=== PATIENT | female | born 1980 | race Caucasian/White ===

== ENCOUNTER 2022-05-14 03:21 | Inpatient (IN) | payer MEDICAID ==
[2022-05-14] VITALS (7 sets, daily range): BP systolic 82–143; BP diastolic 52–103
[~2022-05-14] VITALS: Ht 162.6 cm; Wt 79.4 kg
--- NOTE | 2022-05-14 03:34 | NUR ---
PT TAKEN TO BED 6
--- NOTE | 2022-05-14 03:40 | NUR ---
42 Y/O F briught in by caity presents with an OD of 100-200 Wellbutrin tablets x6 beers, x1 shot of tequila while at a family alliance party at home. pt stated she was triggered because her oldest daughter brought over her babys father new girlfriend. pt stated she has a history of depression and suicide attempts. pt stated she does not want to live. pt is A&Ox3, skin intact. pt stated she feels nauseated but denies any vd. pmh-depression allergies-unobtainable
--- NOTE | 2022-05-14 03:53 | NUR ---
Dr. Blanchard examining patient.
[2022-05-14 04:07] LABS: BASOPHILS # (AUTO) 0.1 K/uL (0.00-0.22); BASOPHILS % (AUTO) 1.5 % (0.0-2.0); EOSINOPHILS # (AUTO) 0.2 K/uL (0-0.4); EOSINOPHILS % (AUTO) 1.8 % (0.0-4.0); HEMATOCRIT 41.6 % (36-48); LYMPHOCYTES # (AUTO) 3.7 K/uL (2.5-16.5); LYMPHOCYTES % (AUTO) 39.7 % (20.5-51.1); MEAN CORPUSCULAR HEMOGLOBIN 29 pg (27-31); MEAN CORPUSCULAR HGB CONC 34 g/dL (33-37); MEAN CORPUSCULAR VOLUME 87.3 fL (80-94); MONOCYTES # (AUTO) 0.5 K/uL (0.8-1.0); MONOCYTES % (AUTO) 5.5 % (1.7-9.3); NEUTROPHILS # (AUTO) 4.8 K/uL (1.8-7.7); NEUTROPHILS % (AUTO) 51.5 % (42.2-75.2); PLATELET COUNT (AUTO) 339 K/uL (140-450); RED BLOOD CELL COUNT(AUTO) 4.77 MIL/uL (4.20-5.40); RED CELL DISTRIBUTION WIDTH 13.8 % (11.6-13.7); WHITE BLOOD COUNT (AUTO) 9.3 K/uL (4.8-10.8)
--- NOTE | 2022-05-14 04:10 | NUR ---
BELONGINGS LIST DONE.
[2022-05-14 04:23] LABS: ALBUMIN 4.6 g/dL (3.4-5.0); ANION GAP 16.4 (8-16); ASPARTATE AMINOTRANSFERASE 17 U/L (15-37); CHLORIDE 109 mmol/L (98-107); CREATININE 1.1 mg/dL (0.6-1.3); GFR ARICAN-AMERICAN 70 mL/min (>90); GLUCOSE 76 mg/dL (74-106); POTASSIUM 3.4 mmol/L (3.5-5.1); SODIUM SERUM 146 mmol/L (136-145); TOTAL BILIRUBIN 0.5 mg/dL (0.0-1.0); UREA NITROGEN, BLOOD 7 mg/dL (7-18)
[2022-05-14 04:26] LABS: SALICYLATE < 2.8 mg/dL (2.8-20.0)
[2022-05-14 04:27] LABS: ACETAMINOPHEN < 0.5 ug/ml (10-30)
--- NOTE | 2022-05-14 04:34 | NUR ---
poision control contacted [phone] spoke with Rafiq. Rafiq gave instructions to start with charcoal as a medication and if needed perform a bowel irrigation with 1 Liter golytely Qhr via NG tube. 24hr watch if needed begin with aggressive benzos and intubate. ekg q2hrs, and look out for possible seizures and tachy.
--- NOTE | 2022-05-14 04:58 | NUR ---
PT PLACED ON A 5150 HOLD BY PRASANTH SILVERIO
[2022-05-14] MEDS ORDERED: LORazepam 2 MG/ML VIAL ONE ×2 (05:25→07:16)
--- NOTE | 2022-05-14 05:25 | NUR ---
DR. SILVERIO AT BEDSIDE
--- NOTE | 2022-05-14 05:26 | NUR ---
Respiratory Therapist at bedside for respiratory intervention.
[2022-05-14] MEDS ORDERED: PROPOFOL 1000 MG/100 ML PREMIX 100 ML IV ONE ×2 (05:30→23:28)
[2022-05-14] MEDS ORDERED: BOWEL EVACUANT DRINK 4,000 ML PDS NG ONE (05:30)
[2022-05-14] MEDS ORDERED: LORazepam 2 MG/ML VIAL IVP ONE ×2 (05:30)
[2022-05-14] MEDS ORDERED: ACTIVATED CHARCOAL W/SORBITOL 50 GM/240 ML TUBE ONE (05:31)
[2022-05-14] MEDS ORDERED: INTUBATION KIT MC ONE (05:32)
--- NOTE | 2022-05-14 05:37 | NUR ---
DR. SILVERIO STARTING PROCEDURE AT BEDSIDE
--- NOTE | 2022-05-14 05:37 | NUR ---
0537- 20MG OF ETOMIDATE GIVEN 0538- 100MG SUCC GIVEN 0539- 23 AT THE MOUTH, +COLOR CHANGE
--- NOTE | 2022-05-14 05:46 | NUR ---
X-Ray at bedside.
[2022-05-14] MEDS ORDERED: NACL 0.9% 1,000 ML IV ONE (06:00)
--- NOTE | 2022-05-14 06:35 | NUR ---
X-Ray at bedside.
--- NOTE | 2022-05-14 06:59 | NUR ---
DR. SILVERIO AT BEDSIDE
[2022-05-14] MEDS ORDERED: NOREPINEPHRINE 4 MG/4 ML VIAL IV ONE ×2 (07:04→14:57)
[2022-05-14] MEDS: NOREPINEPHRINE 4 MG in DEXTROSE 5% 250 ML IV PRN (07:12)
--- NOTE | 2022-05-14 07:16 | NUR ---
PT HAD A SEIZURE. ERMD MADE AWARE
--- NOTE | 2022-05-14 07:28 | NUR ---
RECIEVED REPORT FROM KATHY JENSEN FOR TRANSFER OF CARE.
--- NOTE | 2022-05-14 07:38 | NUR ---
RECEIVED ON A KnewtonSCAPE R860 VENTILATOR PLUGGED INTO RE OUTLET TOLERATING WELL WITHOUT ADVERSE REACTIONS NOTED TO AN ENDOTRACHEAL TUBE #7.5 SECURED AT 24cl TEETH/GUM LINE WITH AN ANCHOR FAST CUFF PRESSURE CHECKED NOTED AMBU BAG AT BEDSIDE SEDATED PROPOFOL 5mcg EPI 8mcg EQUAL CHEST RISE GOOD AERATION THROUGHOUT BILATERAL LUNG RODGERS AIRWAY PATENT
--- NOTE | 2022-05-14 09:12 | NUR ---
TRANSFERRED PATIENT TO RADIOLOGY FOR CT SCAN OF HEAD; REMOVED FROM VENTILATOR PLACED ON SUPPLEMENTAL OXYGEN AT 15 LPM VIA E-TANK TO HME/INLINE SUCTION CATHETER/ENDOTRACHEAL TUBE BAG DEPRESSION EVERY 5-6 SECONDS WHILE MAINTAINING A RATE OF 20 BPM TOLERATED PROCEDURE AND TRANSFERS WELL WITHOUT ADVERSE REACTIONS NOTED SATURATION 99% HR MID 90'S
--- NOTE | 2022-05-14 09:13 | NUR ---
PT TAKEN TO CT WITH COMPUTER NETWORKING INSTRUCTOR ADJUNCT, RT, AND EMT
[2022-05-14] MEDS ORDERED: PIPERACILLIN/TAZOBACTAM 3.375 GM VIAL IV ONE (09:24)
--- NOTE | 2022-05-14 09:25 | NUR ---
Returned from CT.
--- NOTE | 2022-05-14 09:35 | NUR ---
Dr. Bundy, mine inspector federal, evaluating patient at bedside. Recieved new orders for Propofol to 20, Golytely 1liter/hour x 4 then to call Poison Control to verify recommendation and 1gm Dilantin IV once. Addendum: 05/14/22 at [address] Guevara, mine inspector federal savannah Nichole.
--- NOTE | 2022-05-14 09:49 | NUR ---
Paged Dr. Dobson, awaiting call back for clarification of orders.
--- NOTE | 2022-05-14 10:03 | NUR ---
Unable to assess Suicide Severity Risk, patient is sedated.
[2022-05-14] MEDS ORDERED: PHENYTOIN 1,000 MG in NACL 0.9% 100 ML IV SCH (11:00)
--- NOTE | 2022-05-14 11:24 | NUR ---
SEDATED PROPOFOL 10mcg EPI 10mcg STABLE GOOD CHEST RISE AIRWAY PATENT
--- NOTE | 2022-05-14 11:51 | NUR ---
CALLED DR. KAYLEE COTTRELL AT [facility] TO REVIEW ABG RESULTS MODE/EXCHANGE TO PAGE FOREAJAYIONED PATIENT ONFORMATION AND CALL BACK NUMBER GIVEN Addendum: 05/14/22 at 1157 by Hugh Higgins RT ONFORMATION=INFORMATION
[2022-05-14] MEDS ORDERED: SODIUM BICARBONATE 650 MG TAB ONE (12:03)
[2022-05-14] MEDS ORDERED: SODIUM BICARBONATE 8.4% PFS 50 MEQ/50 ML SYR IVP ONE ×4 (12:03→12:20)
[2022-05-14] MEDS ORDERED: SODIUM BICARBONATE 8.4% 50 MEQ in DEXTROSE 5% 1,000 ML IV SCH (12:05)
--- NOTE | 2022-05-14 12:08 | NUR ---
Patient is noted to be in V-Fib intermittently, Dr. Yao made aware.
--- NOTE | 2022-05-14 12:13 | NUR ---
Orders recieved for Sodium Bicarb 150 mEq IV Push from Dr[address] Yao. RN administered medication.
--- NOTE | 2022-05-14 12:14 | NUR ---
CALL BACK FROM DR. KAYLEE HONEYCUTT: VENTILATOR CHANGES INCREASED RATE TO 24 BPM; VT 500ml; FIO2 TO 60%; INFUSE 2 AMPS BICARBONATE; ABG 05/15/22 AT 8AM
--- NOTE | 2022-05-14 12:16 | NUR ---
PER YINKA COTTRELL AT 1214 "1 AMP BICRABONATE"; PER NIRAV/RIBBON WEAVER 2 AMPS BICARBONATE GIVEN AT 1213
--- NOTE | 2022-05-14 12:17 | NUR ---
VENTILATOR CHANGES PER YINKA COTTRELL AT 1214; SEDATED EQUAL CHEST RISE NO DISTRESS NOTED AIRWAY PATENT
--- NOTE | 2022-05-14 12:25 | NUR ---
SPOKE WITH POISON CONTROL, UPDATE GIVEN AT THIS TIME
[2022-05-14] MEDS: PIPERACILLIN/TAZOBACTAM 3.375 GM in DEXTROSE 5% 50 ML IV SCH ×2 (13:00→13:29)
[2022-05-14 13:35] LABS: BARBITURATE, URINE NEGATIVE ng/ml (NEG <=200); BENZODIAZEPINE, URINE NEGATIVE ng/mL (NEG <=200)
[2022-05-14 13:36] LABS: CANNABINOID, URINE NEGATIVE ng/mL (NEG <=50); COCAINE, URINE NEGATIVE ng/mL (NEG <=300); OPIATE, URINE NEGATIVE ng/mL (NEG <=2000); PHENCYCLIDINE SCREEN,URINE NEGATIVE ng/mL (NEG <=25)
--- NOTE | 2022-05-14 14:19 | NUR ---
Used prepress operator Neela #:[phone] to update mom on patients condition.
--- NOTE | 2022-05-14 15:50 | NUR ---
Patient was turned and repositioned, no bowel movement noted.
--- NOTE | 2022-05-14 16:28 | NUR ---
SPOKE WITH POISON CONTROL, UPDATE GIVEN AT THIS TIME. PT OUTSIDE OF WINDOW FOR GLYCOL TX DIRECT LINE:
--- NOTE | 2022-05-14 17:34 | NUR ---
Updated mom, responsible green party, on patients condition. Ritika #: [id number]
--- NOTE | 2022-05-14 18:35 | NUR ---
Patient was turned and repositioned.
--- NOTE | 2022-05-14 20:56 | NUR ---
Gayle LOWERED FIO2 TO 40%
--- NOTE | 2022-05-14 22:20 | NUR ---
ADMITTED PATIENT FROM ER WITH A DIAGNOSIS OF WELBUTRIN OVERDOE ON A GURNEY.SHE WAS ON RESTRAINTS TO PREVENT FROM PULLING OUT VITAL LINES.ON PROPOFOL AT 25MCG AND LEVOPHED AT 5MCG.ON VENT SETTINGS ACVC 24TV 500 FIO2 40% PEEP 5 WITH O2 SAT AT 94% LUNG SOUNDS WITH RHONCHI THROUHOUT.ABDOMEN BENIGN,OBESE WITH + BS X4 QUADS.ALL PULSES PRESENT AND PALPABLE.NO EDEMA NOTED ON ALL EXTREMITIES.RIGHT IJ BENIGN WITH DRESSING IN PLACE ,WILL CONTINUE TO PROCEED WITH CARE.
--- NOTE | 2022-05-14 22:23 | NUR ---
221 transfered pt to icu bed 6. pt on same settings
[2022-05-15] VITALS (21 sets, daily range): BP systolic 108–143; BP diastolic 34–90
[2022-05-15] MEDS ORDERED: PROPOFOL 200 MG/20 ML VIAL IV SCH (02:35)
[2022-05-15] MEDS ORDERED: NOREPINEPHRINE 4 MG/4 ML VIAL IV ONE ×2 (04:05→21:04)
--- NOTE | 2022-05-15 05:18 | NUR ---
0520 LOWERED FIO2 TO 35% ON VENT. SATS 97%
[2022-05-15] MEDS: NOREPINEPHRINE 4 MG in DEXTROSE 5% 250 ML IV PRN (05:22)
--- NOTE | 2022-05-15 07:00 | NUR ---
ENDORSED TO NOVAL DAY SHIFT RN FOR CONTINUITY OF CARE.
[2022-05-15] MEDS: PROPOFOL 1000 MG/100 ML PREMIX 100 ML IV PRN ×3 (10:00→21:22)
--- NOTE | 2022-05-15 10:02 | NUR ---
PATIENT HAS BEEN SCREENED AND CATEGORIZED MODERATE NUTRITION RISK. PATIENT WILL BE SEEN WITHIN 3-5 DAYS OF ADMISSION. REVIEWED BY CHRISTEL TUTTLE RD
[2022-05-15] MEDS ORDERED: fentaNYL citrate 1 MG in NACL 0.9% 80 ML IV PRN (10:05)
--- NOTE | 2022-05-15 10:45 | NUR ---
PT. WITH LOW JEFFERY SCALE AT MODERATE TO HIGH RISK, CONTINUE TO FOLLOW PRESSURE INJURY PREVENTION INTERVENTIONS. -POSITIONING: TURN AND REPOSITION PATIENT Q 2H OR SOONER USE PILLOWS TO KEEP BONY PROMINENCES FROM DIRECT CONTACT WITH SURFACES USE REPOSITIONING WEDGES TO PROVIDE 30-DEGREE ANGLE FOR SIDE LYING POSITIONS OFFLOADING OR FOAM DRESSING TO ALL TUBING TO PREVENT MEDICAL DEVICES RELATED PRESSURE INJURY -RE-EVALUATING AND MANAGING INCONTINENCE MONITOR SKIN CONDITION DURING POSITION CHANGE DO NOT MASSAGE REDNESS, BONY PROMINENCES FREQUENT MAC-CARE AND PROVIDE BARRIER CREAMS PRN IF SOILING MOISTURE CONTROL BY OFFER BED HERNANDEZ/URINAL /ABSORBENT PAD TO WICK AND HOLD MOISTURE KEEP SKIN DRY AND PROTECT FROM FRICTION -MANAGE FRICTION/SHEAR/MOBILITY KEEP HOB AT THE LOWEST LEVEL OF ELEVATION NO MORE THAN 30 DEGREE UNLESS OTHERWISE CONTRAINDICATED USE LIFT SHEET OR TRANSFER DEVICE TO MOVE PATIENT AND PREVENT LATERAL SHEER. PROTECT HEELS, ELBOWS BONY PROMINENCES WITH SKIN BERRIES OR FOAM DRESSING IF EXPOSED TO FRICTION OFFLOAD BILATERAL HEELS BY PLACING PILLOWS UNDER CALVES AT ALL TIMES, UNLESS OTHERWISE CONTRAINDICATED -PRESSURE REDISTRIBUTION SURFACE THERAPY MALDONADO ISOFLEX MATTRESS -NUTRITION: PLEASE FOLLOW RD RECOMMENDATIONS AND OFFER NUTRITION SUPPLEMENTS IF ORDERED. PLEASE CONTACT WOUND CARE NURSE FOR ANY QUESTION AND CHANGE OF WOUND CONDITION.
[2022-05-15 11:38] LABS: BASOPHILS % (AUTO) 0.2 % (0.0-2.0); EOSINOPHILS % (AUTO) 0.2 % (0.0-4.0); HEMOGLOBIN 11.2 g/dL (12.0-16.0); LYMPHOCYTES # (AUTO) 1.7 K/uL (2.5-16.5); LYMPHOCYTES % (AUTO) 9.7 % (20.5-51.1); MEAN CORPUSCULAR HEMOGLOBIN 29 pg (27-31); MEAN CORPUSCULAR HGB CONC 33 g/dL (33-37); MEAN CORPUSCULAR VOLUME 88.8 fL (80-94); MONOCYTES # (AUTO) 1.3 K/uL (0.8-1.0); MONOCYTES % (AUTO) 7.4 % (1.7-9.3); NEUTROPHILS # (AUTO) 14.9 K/uL (1.8-7.7); NEUTROPHILS % (AUTO) 82.5 % (42.2-75.2); PLATELET COUNT (AUTO) 290 K/uL (140-450); RED BLOOD CELL COUNT(AUTO) 3.83 MIL/uL (4.20-5.40); RED CELL DISTRIBUTION WIDTH 14.3 % (11.6-13.7); WHITE BLOOD COUNT (AUTO) 18.1 K/uL (4.8-10.8)
[2022-05-15 12:13] LABS: ALBUMIN 3.6 g/dL (3.4-5.0); ANION GAP 15.5 (8-16); CARBON DIOXIDE 23.6 mmol/L (21-32); CREATININE 0.9 mg/dL (0.6-1.3); POTASSIUM 3.1 mmol/L (3.5-5.1); TOTAL BILIRUBIN 1.4 mg/dL (0.0-1.0)
[2022-05-15] MEDS: PIPERACILLIN/TAZOBACTAM 3.375 GM in DEXTROSE 5% 50 ML IV SCH ×2 (13:00→20:45)
--- NOTE | 2022-05-15 13:26 | NUR ---
[place] VIR[facility]NA SW ATTEMPTED TO OUTREACH TO PTS EMERGENCY CONTACT IMAN ARMSTRONG, PT'S MOTHER, HOWEVER, NO ANSWER. PHONE CONTINUED TO RING, UNABLE TO LEAVE MESSAGE. Addendum: 05/16/22 at 1341 by Jer Payne SS SECOND ATTEMPT: OUTREACHED TO PTS EMERGENCY CONTACT IMAN ARMSTRONG, , HOWEVER NO ANSWER. UNABLE TO LEAVE MESSAGE PHONE CONTINUES TO RING.
[2022-05-15] MEDS ORDERED: THIAMINE 200 MG/2 ML VIAL IM ONE (14:10)
[2022-05-15] MEDS ORDERED: MAG SULF 2000 MG/WATER PREMIX 50 ML IV SCH (14:18)
[2022-05-15] MEDS: FOLIC ACID IV SCH (15:00)
[2022-05-15] MEDS: MULTIVITAMIN IV SCH (15:00)
[2022-05-15] MEDS: THIAMINE IV SCH (15:00)
[2022-05-15] MEDS: DEXTROSE 5% IV SCH (15:00)
[2022-05-15] MEDS ORDERED: fentaNYL citrate - 50mL vial 2.5 MG in NACL 0.9% 200 ML IV PRN (15:15)
[2022-05-15] MEDS: LORazepam 2 MG/ML VIAL IVP PRN (18:53)
--- NOTE | 2022-05-15 20:00 | NUR ---
RECEIVE PATIENT SEDATED ON PROFOFOL 30 MCG AND FENTANYL 2 MCG.OPEN EYES AND ABLE TO MOVE EXTREMITIES.AFEBRILE.ASYMPTOMATIC OF ANY PAIN AND DISCOMFORT.SR ON THE MONITOR WITH HR 88.ON VENT SETTINGS ACVC 24TV 500 FIO2 35% PEEP 5 WITH O2 SAT AT 96% LUNG SOUNDS WITH RHONCHI THROUGHOUT.ABDOMEN OBESE WITH + BS X4 QUADS.ALL PULSES PRESENT AND PALPABLE NO EDEMA NOTED ON ALL EXTREMITIES.ALL PERIPHERAL IV AND AND RIGHT INTERNAL JUGULAR STILL PATENT AND INTACT AND BENIGN.FOLET IN PLACE DRAINING ADEQUATE AMOUNT OF URINE.WILL CONTINUE TO FOLLOW CARE PLAN.
[2022-05-15] MEDS ORDERED: NOREPINEPHRINE 8 MG in DEXTROSE 5% 250 ML IV PRN (21:50)
[2022-05-16] VITALS (19 sets, daily range): BP systolic 103–187; BP diastolic 45–116
[2022-05-16] MEDS: PROPOFOL 1000 MG/100 ML PREMIX 100 ML IV PRN ×2 (02:33→08:42)
[2022-05-16] MEDS: PIPERACILLIN/TAZOBACTAM 3.375 GM in DEXTROSE 5% 50 ML IV SCH ×3 (04:50→21:29)
[2022-05-16 06:37] LABS: ANION GAP 10.1 (8-16); CARBON DIOXIDE 25.7 mmol/L (21-32); CREATININE 0.8 mg/dL (0.6-1.3)
[2022-05-16 07:40] LABS: POTASSIUM 2.8 mmol/L (3.5-5.1)
[2022-05-16] MEDS: LORazepam 2 MG/ML VIAL IVP PRN ×3 (08:40→14:16)
[2022-05-16] MEDS ORDERED: KCL 20 MEQ IN 100 mL PREMIX 200 ML IV SCH ×2 (09:00→16:00)
--- NOTE | 2022-05-16 09:15 | NUR ---
TV LOWERED FROM 500 TO 450 AND RR LOWERED FROM [address] ROSE.
[2022-05-16 09:18] LABS: BASOPHILS # (AUTO) 0.1 K/uL (0.00-0.22); BASOPHILS % (AUTO) 0.6 % (0.0-2.0); EOSINOPHILS # (AUTO) 0.2 K/uL (0-0.4); HEMATOCRIT 30.6 % (36-48); LYMPHOCYTES # (AUTO) 2.3 K/uL (2.5-16.5); LYMPHOCYTES % (AUTO) 20.5 % (20.5-51.1); MEAN CORPUSCULAR HEMOGLOBIN 29 pg (27-31); MEAN CORPUSCULAR HGB CONC 33 g/dL (33-37); MEAN CORPUSCULAR VOLUME 89.7 fL (80-94); MONOCYTES % (AUTO) 8.9 % (1.7-9.3); NEUTROPHILS # (AUTO) 7.8 K/uL (1.8-7.7); PLATELET COUNT (AUTO) 228 K/uL (140-450); RED BLOOD CELL COUNT(AUTO) 3.41 MIL/uL (4.20-5.40); RED CELL DISTRIBUTION WIDTH 14.4 % (11.6-13.7); WHITE BLOOD COUNT (AUTO) 11.4 K/uL (4.8-10.8)
[2022-05-16] MEDS: DEXMEDETOMIDINE HCL 400 MCG in DEXTROSE 5% 96 ML IV PRN ×3 (10:00→22:49)
[2022-05-16] MEDS ORDERED: KCL 20 MEQ IN 100 mL PREMIX 100 ML IV SCH (13:00)
--- NOTE | 2022-05-16 13:49 | NUR ---
05/16/22 RD INITIAL ASSESSMENT COMPLETED PLEASE REFER TO NUTRITION ASSESSMENT UNDER CARE ACTIVITY FOR ESTIMATED NUTRITIONAL NEEDS. 1. CONTINUE NPO, PER MD 2. WHEN/IF MEDICALLY APPROPRIATE, AND IF PT BEGINS TUBE FEEDING, RECOMMEND VITAL 1.2 @55 ML/HR, FWF 100 ML Q6H -WILL PROVIDE 1320 ML TOTAL VOLUME, 1584 KCALS, 99 G PROTEIN, AND 1470 ML FREE WATER, MEETS 100% OF ESTIMATED CALORIE AND PROTEIN RECOMMENDATIONS. -BEGIN RATE AT 10 ML, INCREASE BY 10 ML Q4H. 3. MONITOR LAB VALUES. 4. RD TO FOLLOW-UP 2-3 DAYS, HIGH RISK REVIEWED BY CHRISTEL TUTTLE RD
[2022-05-16] MEDS: FOLIC ACID IV SCH (15:55)
[2022-05-16] MEDS: DEXTROSE 5% IV SCH (15:55)
[2022-05-16] MEDS: THIAMINE IV SCH (15:55)
[2022-05-16] MEDS: MULTIVITAMIN IV SCH (15:55)
--- NOTE | 2022-05-16 17:10 | NUR ---
SBT FOR 60M. VOLUMES BETWEEN 500-650. BLOOD PRESSURE IS STABLE, HEART RATE 95, FOLLOWS COMMANDS. NIF WAS -22, VITAL CAPACITY 638. VERBAL EXTUBATE FROM DR. ROSE, TO BUBBLE NASAL CANNULA. WILL CONTINUE TO MONITOR.
--- NOTE | 2022-05-16 17:40 | NUR ---
PT EXTUBATED TO 4L BUBBLE NASAL CANNULA. SATURATION 97%, BLOOD PRESSURE IS STABLE. HEART RATE 90-100BPM. RESPIRATORY RATE 18-20BPM. PT RESPONSIVE AND FOLLOWS COMMANDS. EQUAL CHEST RISE, GOOD COUGH. NO DISTRESS NOTED. WILL CONTINUE TO MONITOR.
--- NOTE | 2022-05-16 19:30 | NUR ---
RECEIVED PATIENT AWAKE BUT DROWSY.AFEBRILE.ASYMPTOMATIC OF ANY PAIN AND DISCOMFORT.ON O2 2L VIA NC WITH O2 SAT AT 92% SR -ST ON THE MONITOR WITH HR 101.ABDOMEN ROUND OBESE WITH + BS [id number].ALL PULSES PRESENT AND PALPABLE.RIGHT INTERNAL JUGULAR AMND ALL PERIPHERAL IV PATENT AND INTACT WITH DRESSINGS IN PLACE,ON BANANA BAG AT 100 ML/HR AND PRECEDEX AT 0.5MCG .WILL CONTINUE TO PROCEED WITH CARE.
--- NOTE | 2022-05-16 22:10 | NUR ---
RECEIVED PT FROM CONVEYOR WEIGHER OPERATOR FOR CONTINUITY OF CARE. PATIENT IS ASLEEP. NO S/SX OF PAIN NOR DISCOMFORT. ON O2-2L NC SAT 93% SKIN WARM AND DRY TO TOUCH. ON BANANA BAG AT 100 ML/HE AND PRECEDEX AT 5 MCG/KG/HR INFUSING ORDERED IN THE RIGHT IJ CENTRAL LINE. SAFETY PRECAUTIONS IN PLACE.
--- NOTE | 2022-05-16 23:26 | NUR ---
RT AT THE BEDSIDE, SUCTIONING DONE, PLACED ON 10L WITH HUMIDIFIER. SAT 92%.
--- NOTE | 2022-05-16 23:30 | NUR ---
PT WAS DESATURATING INTO THE 70'S ON 4L NC. PT WAS AUDIBLY COURSE, NO STRIDOR. PLACED PT ON A CURAPLEX NC AT 10 LPM AND NASALLY SXN'D. SPO2 INCREASED TO 90%, BS WERE CLEAR BUT HAD SOME WOB. PLACED HER ON HFNC 40 LPM 35% FIO2. PT SPO2 IS NOW 95% AND WOB IMPROVED. WILL CONTINUE TO MONITOR PT.
--- NOTE | 2022-05-16 23:44 | NUR ---
PT NOW PLACED BY RT ON HI FLOW 40L FIO2-55% SAT 94%. MADE COMFORTABLE IN BED. HEAD OF THE BED ELEVATED. ORAL CARE DONE.
[2022-05-17] VITALS (16 sets, daily range): BP systolic 91–151; BP diastolic 27–96
--- NOTE | 2022-05-17 01:10 | NUR ---
increased precedex to 1mcg by agriculture scientist. will continue to monitor.
[2022-05-17] MEDS: DEXMEDETOMIDINE HCL 400 MCG in DEXTROSE 5% 96 ML IV PRN ×4 (04:29→22:23)
--- NOTE | 2022-05-17 04:30 | NUR ---
AM CARE RENDERED. REPOSITIONED AND MADE COMFORTABLE IN BED.
--- NOTE | 2022-05-17 05:00 | NUR ---
SCHEDULED MEDICATIONS GIVEN. PT TOLERATED WELL. WILL CONTINUE TO MONITOR
[2022-05-17] MEDS: PIPERACILLIN/TAZOBACTAM 3.375 GM in DEXTROSE 5% 50 ML IV SCH ×3 (05:01→21:13)
[2022-05-17 05:30] LABS: BASOPHILS # (AUTO) 0.1 K/uL (0.00-0.22); BASOPHILS % (AUTO) 0.4 % (0.0-2.0); EOSINOPHILS % (AUTO) 0.3 % (0.0-4.0); HEMATOCRIT 34.3 % (36-48); HEMOGLOBIN 11.3 g/dL (12.0-16.0); LYMPHOCYTES # (AUTO) 1.3 K/uL (2.5-16.5); LYMPHOCYTES % (AUTO) 7.2 % (20.5-51.1); MEAN CORPUSCULAR HEMOGLOBIN 29 pg (27-31); MEAN CORPUSCULAR HGB CONC 33 g/dL (33-37); MEAN CORPUSCULAR VOLUME 89.7 fL (80-94); MONOCYTES # (AUTO) 0.4 K/uL (0.8-1.0); MONOCYTES % (AUTO) 2.3 % (1.7-9.3); NEUTROPHILS % (AUTO) 89.8 % (42.2-75.2); PLATELET COUNT (AUTO) 235 K/uL (140-450); RED BLOOD CELL COUNT(AUTO) 3.83 MIL/uL (4.20-5.40); RED CELL DISTRIBUTION WIDTH 14.2 % (11.6-13.7); WHITE BLOOD COUNT (AUTO) 17.9 K/uL (4.8-10.8)
[2022-05-17 06:01] LABS: ANION GAP 12.7 (8-16); CARBON DIOXIDE 25.2 mmol/L (21-32); CREATININE 0.6 mg/dL (0.6-1.3); POTASSIUM 3.9 mmol/L (3.5-5.1)
[2022-05-17 06:20] LABS: MAGNESIUM 1.9 mg/dL (1.8-2.4); PHOSPHORUS 2.4 mg/dL (2.5-4.9)
--- NOTE | 2022-05-17 06:42 | NUR ---
PATIENT IS ASLEEP. NO ACUTE RESPIRATORY DISTRESS. ALL NEEDS ATTENDED TO. SAFETY PRECAUTIONS MAINTAINED DURING THE SHIFT.
--- NOTE | 2022-05-17 07:20 | NUR ---
Received pt alert and oriented x2. On high flow nasal cannula 40L, FiO2@40%. Sinus tachycardia on monitor. NPO at this time. Funez catheter intact and draining to gravity. Central line on right IJ intact and patent infusing Precedex @1.2mcg/kg/hr. Peripheral IV on RAC 20 gauge intact and saline locked. Safety precautions in place.
--- NOTE | 2022-05-17 08:45 | NUR ---
Dr. Ross at bedside examining patient. New order for ST key.
[2022-05-17] MEDS: DEXTROSE 5% IV SCH (14:29)
[2022-05-17] MEDS: THIAMINE IV SCH (14:29)
[2022-05-17] MEDS: MULTIVITAMIN IV SCH (14:29)
[2022-05-17] MEDS: FOLIC ACID IV SCH (14:29)
--- NOTE | 2022-05-17 15:39 | NUR ---
DC PLANNING ASSESSMENT COMPLETE PLEASE REFER TO ASSESSMENT FOR ADDITIONAL DETAILS ATTEMPTED TO MEET PT AT BEDSIDE TO COMPLETE ASSESSMENT, HOWEVER, PT IN AND OUT OF SLEEP, THEREFORE, COLLAT INFO GATHERED FROM PTS BROTHER AT BEDSIDE. ONLY KNOWN INFORMATION PROVIDED BY PTS BROTHER. BROTHER REPORTS PT'S MOTHER MOST LIKELY UNABLE TO PROVIDE ADDITIONAL COLLAT INFO. SW TO ATTEMPT TO MEET PT AT BEDSIDE WHEN PT IS ABLE TO PROVIDE HER OWN INFORMATION. . PT IS A 42 YR OLD FEMALE ADMITTED TO [facility] FROM HOME WITH DX OF WELLBUTRIN OVERDOSE. PT HAS PAST MEDICAL HX OF DEPRESSION PER PHYSICIAN NOTES, PT HAS PAST MEDICAL HX OF MAJOR DEPRESSION AND HX OF PREVIOUS PSYCHIATRIC ADMISSIONS. PT'S BROTHER DENIES KNOWLEDGE OF MENTAL HX HX AND/OR PAST PSYCHIATRIC HOSPITALIZATIONS. PT CURRENTLY HAS A PSYCH EVAL PENDING. TENTATIVE DC PLAN TO RETURN HOME PENDING PSYCH EVAL. Addendum: 05/17/22 at 1541 by Jer CRUZ Amended: Links added.
--- NOTE | 2022-05-17 15:40 | NUR ---
Swallow eval done at bedside.
--- NOTE | 2022-05-17 15:40 | NUR ---
Dr. Fernandes at bedside examining patient. Reported brown sputum. New order received.
[2022-05-17] MEDS ORDERED: cefTRIAXone 2,000 MG in DEXTROSE 5% 100 ML IV SCH (17:00)
--- NOTE | 2022-05-17 17:37 | NUR ---
Called [facility] for psych consult ETA. No answer, but left a call back number.
--- NOTE | 2022-05-17 18:49 | NUR ---
Dr. Tinoco at bedside. Reported low grade fever and brown sputum. Pt for CXR.
--- NOTE | 2022-05-17 19:26 | NUR ---
Assisted pt to bedside commode. Pt had medium loose brown BM and noted to have a few pills in BM. Pericare rendered.
--- NOTE | 2022-05-17 19:42 | NUR ---
Endorsed to material handler 2nd shift nurse Macie for continuity of care.
--- NOTE | 2022-05-17 20:42 | NUR ---
RECEIVED REPORT FROM DAY SHIFT RN. PATIENT IS AOX3, FOLLOWING UP INSTRUCTION, ABLE TO MAKE NEEDS. EMATIONAL CALM AND COORPERATIVE. HIGH FLOW OXYGEN SETTING AT 25l 30% OF OXYGEN. CHEST X-RAY DONE . PATIENT IS QUIET RESTING IN HER BED AT THIS TIME.
[2022-05-17 23:40] LABS: APPEARANCE,URINE CLEAR (CLEAR); BILIRUBIN,URINE NEGATIVE (NEGATIVE); BLOOD, URINE 1+ (NEGATIVE); COLOR,URINE YELLOW (YELLOW); LEUKOCYTE ESTERASE ,URINE NEGATIVE (NEGATIVE); NITRITE, URINE NEGATIVE (NEGATIVE); UGLUCOSE NEGATIVE (NEGATIVE)
[2022-05-17 23:50] LABS: RBC,URINE 0-5 /HPF (0-5); WBC,URINE 0-5 /HPF (0-5)
[2022-05-18] VITALS (12 sets, daily range): BP systolic 93–143; BP diastolic 57–78
[2022-05-18] MEDS: PIPERACILLIN/TAZOBACTAM 3.375 GM in DEXTROSE 5% 50 ML IV SCH ×4 (05:48→21:18)
[2022-05-18 06:09] LABS: BASOPHILS % (AUTO) 0.1 % (0.0-2.0); EOSINOPHILS # (AUTO) 0.4 K/uL (0-0.4); EOSINOPHILS % (AUTO) 1.9 % (0.0-4.0); HEMOGLOBIN 10.6 g/dL (12.0-16.0); LYMPHOCYTES # (AUTO) 1.6 K/uL (2.5-16.5); LYMPHOCYTES % (AUTO) 8.6 % (20.5-51.1); MEAN CORPUSCULAR HEMOGLOBIN 29 pg (27-31); MEAN CORPUSCULAR HGB CONC 32 g/dL (33-37); MONOCYTES # (AUTO) 0.9 K/uL (0.8-1.0); MONOCYTES % (AUTO) 4.6 % (1.7-9.3); NEUTROPHILS # (AUTO) 15.9 K/uL (1.8-7.7); NEUTROPHILS % (AUTO) 84.8 % (42.2-75.2); PLATELET COUNT (AUTO) 265 K/uL (140-450); RED BLOOD CELL COUNT(AUTO) 3.63 MIL/uL (4.20-5.40); WHITE BLOOD COUNT (AUTO) 18.7 K/uL (4.8-10.8)
[2022-05-18 06:17] LABS: ANION GAP 11.1 (8-16); CARBON DIOXIDE 28.2 mmol/L (21-32); CREATININE 0.7 mg/dL (0.6-1.3); POTASSIUM 3.3 mmol/L (3.5-5.1)
[2022-05-18 06:26] LABS: PHOSPHORUS 3.2 mg/dL (2.5-4.9)
--- NOTE | 2022-05-18 07:10 | NUR ---
RECEIVED PT ON HFNC 25L, 30%. 34 DEGREE. SATURATION 94%. BREATH SOUNDS WERE CLEAR. WILL CONTINUE TO MONITOR.
--- NOTE | 2022-05-18 07:11 | NUR ---
Vss, denied pain and sucidule Lawn. High flow O2 seting 25L and/ 30%. Precedex DC hold .
[2022-05-18] MEDS: DEXMEDETOMIDINE HCL 400 MCG in DEXTROSE 5% 96 ML IV PRN (07:14)
--- NOTE | 2022-05-18 07:30 | NUR ---
RECEIVED REPORT FROM NIGHTSHIFT NURSE. PT A/O X3. ON HIGH FLOW NC 25L, FIO2 35%, HOB ELEVATED. DENIES PAIN. SKIN INTACT. CHERY VIA GRAVITY. VSS. NEEDS ALL MET AT THIS TIME. ALL SAFETY MEASURES IN PLACE.
[2022-05-18] MEDS ORDERED: POTASSIUM CHLORIDE 10 MEQ TABER PO SCH (08:00)
--- NOTE | 2022-05-18 09:30 | NUR ---
ASSISTED PT TO AND FROM BEDSIDE COMMODE. PT WITH LARGE BM. HYGIENIC CARE PROVIDED. PT NOTED WITH SCANT SANGUINOUS DRAINAGE ON PERINEAL PAD. PERINEAL PAD PROVIDED AND LINENS CHANGED. PT TOLERATED. WELL.
--- NOTE | 2022-05-18 10:00 | NUR ---
DR. ROSE ROUNDED ON PT. ORDER TO TAKE OFF HIGH FLOW AND PLACE ON NASAL CANNULA. CONTACTED RT. CONTACTED PSYCH FOR PSYCH EVAL
--- NOTE | 2022-05-18 10:30 | NUR ---
HFNC NO LONGER NEEDED. PT CURRENTLY ON 7L BUBBLE CURAPLEX NASAL CANNULA. BREATH SOUNDS WERE CLEAR. SATURATION 98%. WILL CONTINUE TO MONITOR.
--- NOTE | 2022-05-18 10:32 | NUR ---
Hi FLOW NC NO LONGER NEEDED.RT PLACED PATIENT ON 7L BUBBLE CURAPLEX NASAL CANNULA. TOLERATING WELL. O2 SATURATION 98%. WILL CONTINUE TO MONITOR.
--- NOTE | 2022-05-18 15:00 | NUR ---
HOURLY ROUNDS CONDUCTED THROUGHOUT MY SHIFT. VSS. PT WITH MODERATE BM. HYGIENIC CARE GIVEN. BRIEFS AND PAD PROVIDED TO PT. PT TOLERATED WELL. NEEDS ALL MET. ALL SAFETY MEASURES IN PLACE.
--- NOTE | 2022-05-18 15:45 | NUR ---
REPORT GIVEN TO [facility]/TELE NURSE FOR CONTINUITY OF CARE.
--- NOTE | 2022-05-18 15:50 | NUR ---
PT TRANSFERRED TO ROOM 121A. PT CURRENT SATURATION IS 98% ON 6L BUBBLE NASAL CANNULA. CLEAR BREATH SOUNDS.
--- NOTE | 2022-05-18 18:42 | NUR ---
RECEIVED PT FROM ICU IN STABLE CONDITION. DENIES CP/SOB. SATING 97% ON 6L NC. SITTER ORDER PLACED PER MD ORDERS.
--- NOTE | 2022-05-18 19:30 | NUR ---
RECEIVED PATIENT LYING ON THE BED, PATIENT IS AWAKE, ALERT AND ORIENTED, ON O2 @6 LPM NC, NO SIGNS OF SOB NOTED. PATIENT IS ON 1:1 SITTER.
[2022-05-18] MEDS ORDERED: PIPERACILLIN/TAZOBACTAM 3.375 GM VIAL IV ONE (21:06)
--- NOTE | 2022-05-18 21:20 | NUR ---
SCHEDULED IV ANTIBIOTIC GIVEN ORDERED. PATIENT LYING ON THE BED, ON O2 26LPM NC, NO SIGNS OF DISTRESS NOTED. ALL SAFETY MEASURES MAINTAINED. PATIENT ON 1:1 SITTER.
--- NOTE | 2022-05-19 00:10 | NUR ---
VITALS T 97.9, P 94, BP 103/61, RESP 20 AND O2 SAT @93% ON 6LPM NC. PATIENT IS ASLEEP, NO SIGNS OF DISTRESS NOTED, ALL SAFETY MEASURES MAINTAINED.
[2022-05-19] MEDS ORDERED: PIPERACILLIN/TAZOBACTAM 3.375 GM VIAL IV ONE (04:39)
[2022-05-19] MEDS: PIPERACILLIN/TAZOBACTAM 3.375 GM in DEXTROSE 5% 50 ML IV SCH ×3 (04:42→20:09)
--- NOTE | 2022-05-19 04:45 | NUR ---
SCHEDULED IV ANTIBIOTIC GIVEN ORDERED. PATIENT ASLEEP, NO SIGNS OF DISTRESS NOTED, ALL SAFETY MEASURES MAINTAINED.
[2022-05-19 05:58] LABS: EOSINOPHILS # (AUTO) 0.4 K/uL (0-0.4); EOSINOPHILS % (AUTO) 2.7 % (0.0-4.0); HEMATOCRIT 31.4 % (36-48); HEMOGLOBIN 10.6 g/dL (12.0-16.0); LYMPHOCYTES # (AUTO) 1.6 K/uL (2.5-16.5); LYMPHOCYTES % (AUTO) 10.4 % (20.5-51.1); MEAN CORPUSCULAR HEMOGLOBIN 30 pg (27-31); MEAN CORPUSCULAR HGB CONC 34 g/dL (33-37); MEAN CORPUSCULAR VOLUME 87.8 fL (80-94); MONOCYTES % (AUTO) 6.4 % (1.7-9.3); NEUTROPHILS # (AUTO) 12.7 K/uL (1.8-7.7); NEUTROPHILS % (AUTO) 80.5 % (42.2-75.2); PLATELET COUNT (AUTO) 285 K/uL (140-450); RED BLOOD CELL COUNT(AUTO) 3.57 MIL/uL (4.20-5.40); RED CELL DISTRIBUTION WIDTH 13.7 % (11.6-13.7); WHITE BLOOD COUNT (AUTO) 15.8 K/uL (4.8-10.8)
[2022-05-19 06:34] LABS: ANION GAP 10.4 (8-16); CARBON DIOXIDE 28.9 mmol/L (21-32); CREATININE 0.7 mg/dL (0.6-1.3); POTASSIUM 3.3 mmol/L (3.5-5.1)
[2022-05-19 06:37] LABS: MAGNESIUM 2.1 mg/dL (1.8-2.4); PHOSPHORUS 3.8 mg/dL (2.5-4.9)
--- NOTE | 2022-05-19 06:58 | NUR ---
ENDORSED PATIENT TO DAY NURSE FOR CONTINUITY OF CARE. PATIENT IN STABLE CONDITION.
[2022-05-19 08:00] VITALS: BP 105/61
[2022-05-19] MEDS: HYDROcodone/APAP 5/325 MG 1 TAB TAB PO PRN ×2 (11:09→20:06)
[2022-05-19 12:00] VITALS: BP 109/73
[2022-05-19 13:59] LABS: ALBUMIN 3.1 g/dL (3.4-5.0); TOTAL BILIRUBIN 0.5 mg/dL (0.0-1.0)
[2022-05-19] MEDS ORDERED: POTASSIUM CHLORIDE 10 MEQ TABER PO SCH (15:00)
[2022-05-19 16:00] VITALS: BP 106/75
--- NOTE | 2022-05-19 16:10 | NUR ---
05/19/22 RD FOLLOW UP COMPLETED PLEASE REFER TO NUTRITION ASSESSMENT UNDER CARE ACTIVITY FOR ESTIMATED NUTRITIONAL NEEDS. 1. CONTINUE MECHANICAL SOFT DIET, TOLERATED. 2. RECOMMEND ENSURE BID -ENSURE BID WILL PROVIDE 700 KCALS, [address] RECOMMEN[address] EVAL, D/T PT HAS DISCOMFORT WHEN SWALLOWING 4. MONITOR GI, PO INTAKE, LAB VALUES. 5. RD TO FOLLOW-UP 2-3 DAYS, HIGH RISK REVIEWED BY CHRISTEL TUTTLE RD
--- NOTE | 2022-05-19 18:00 | NUR ---
PATIENT HAD AN UNEVENTFUL DAY, SITTER REMAINS AT BEDSIDE. TOLERATED MEDS AND DIET WELL. REQUESTED FOR PAIN MEDICATION ONCE THIS SHIFT. SAFETY PRECAUTIONS MAINTAINED THIS SHIFT. O2 WEANED TO 2LITERS RT TOLERATING WELL. CONTINUE TO MONITOR CLOSELY.
--- NOTE | 2022-05-19 19:20 | NUR ---
RECEIVED REPORT FROM PAM RODRÍGUEZ FOR CONTINUITY OF CARE. PT AWAKE IN BED WITH FAMILY MEMBER AT BEDSIDE. ON MEDICAID PLAN COMPLIANCE DIRECTOR. RESPIRATIONS EVEN AND UNLABORED ON 5L O2. NO DISTRESS NOTED. RIJ TRIPLE LUMEN, PATENT AND INTACT. CHERY CATHETER IN PLACE, DRAINING TO GRAVITY. WITH 1:1 SITTER. SAFETY PRECAUTIONS IN PLACE.
--- NOTE | 2022-05-19 19:45 | NUR ---
PT REMOVING NASAL CANNULA DUE TO DISCOMFORT. SPO2 LOW 80'S. PT PLACED ON SIMPLE MASK AT 5L TO MAINTAIN SPO2 >92%
[2022-05-19 20:00] VITALS: BP 120/66
--- NOTE | 2022-05-19 21:00 | NUR ---
Patient's Plan of Care was discussed and reviewed with YOLK SPRAY DRIER: TONA SEWELL
--- NOTE | 2022-05-19 21:01 | NUR ---
ADMINISTERED DUE MED. PT COMPLIANT. COMMUNICATE APPROPRIATELY. ANSWERED QUESTIONS. REMAINED IN BED.
[2022-05-20] VITALS: BP 111/72
[2022-05-20 04:00] VITALS: BP 113/73
[2022-05-20] MEDS: PIPERACILLIN/TAZOBACTAM 3.375 GM in DEXTROSE 5% 50 ML IV SCH ×3 (04:13→21:37)
--- NOTE | 2022-05-20 06:54 | NUR ---
PT SLEEPING. NO UNUSUAL EVENT ALL THROUGHOUT SHIFT. NO DISTRESS NOTED. 1:1 SITTER MAINTAINED. PT REMAINED SAFE IN BED.
[2022-05-20 07:06] LABS: BASOPHILS % (AUTO) 0.4 % (0.0-2.0); EOSINOPHILS # (AUTO) 0.4 K/uL (0-0.4); EOSINOPHILS % (AUTO) 3.4 % (0.0-4.0); HEMATOCRIT 34.7 % (36-48); HEMOGLOBIN 11.6 g/dL (12.0-16.0); LYMPHOCYTES # (AUTO) 2.1 K/uL (2.5-16.5); LYMPHOCYTES % (AUTO) 19.9 % (20.5-51.1); MEAN CORPUSCULAR HEMOGLOBIN 30 pg (27-31); MEAN CORPUSCULAR HGB CONC 33 g/dL (33-37); MEAN CORPUSCULAR VOLUME 90.1 fL (80-94); MONOCYTES # (AUTO) 0.7 K/uL (0.8-1.0); NEUTROPHILS # (AUTO) 7.3 K/uL (1.8-7.7); NEUTROPHILS % (AUTO) 69.3 % (42.2-75.2); PLATELET COUNT (AUTO) 307 K/uL (140-450); RED BLOOD CELL COUNT(AUTO) 3.85 MIL/uL (4.20-5.40); RED CELL DISTRIBUTION WIDTH 13.5 % (11.6-13.7); WHITE BLOOD COUNT (AUTO) 10.5 K/uL (4.8-10.8)
--- NOTE | 2022-05-20 07:14 | NUR ---
GAVE BEDSIDE REPORT TO PAM MENDOZA FOR CONTINUITY OF CARE. ENDORSED RENEWAL OF 5150 HOLD. PT IS STABLE.
--- NOTE | 2022-05-20 07:20 | NUR ---
RECEIVED PT FROM NIGHT RN, PT IS ASLEEP AND LYING ON THE BED WITH SIDE RAILS UP AND CALL LIGHT WITHIN REACH, SITTER ON THE BEDSIDE FOR SAFETY, , PT HAS A RIGHT IJ CENTRAL LINE TRIPLE LUMEN ON TKO, CHERY CATHETER IN PLACE, PT IS ON A 5LO2 VIA SIMPLE MASK, NO SIGN OF DISTRESS NOTED AND WILL CONTINUE PEPPER MONITOR PT.
[2022-05-20 07:40] LABS: ANION GAP 13.5 (8-16); CREATININE 0.6 mg/dL (0.6-1.3); POTASSIUM 3.5 mmol/L (3.5-5.1)
--- NOTE | 2022-05-20 07:47 | NUR ---
PT WAS FOUND WITH MASK OFF. SATURATION WAS 85%. REPLACED MASK. PATENT IS NOW ON SIMPLE MASK AT 5L AND SATURATION IS 94%/ eDUCATION ON THE BENEFITS AND REASONS FOR OXYGEN TREATMENT. PATIENT AGREED TO LEAVE IT ON.ASKED IF SHE WOULD PREFER RICKEY NASAL CANNULA AND SHE SAID NO, THE MASK IS BETTER. WILL CONTINUE TO MONITOR PT.
[2022-05-20 08:00] VITALS: BP 107/67
[2022-05-20 08:12] LABS: MAGNESIUM 1.8 mg/dL (1.8-2.4)
--- NOTE | 2022-05-20 09:15 | NUR ---
PT WAS MEDICATED WITH NORCO, SCAN DID NOT SAVE IN EMAR, PHARMACY WAS INFORMED.
[2022-05-20 12:00] VITALS: BP 106/65
[2022-05-20 16:00] VITALS: BP 102/65
--- NOTE | 2022-05-20 17:00 | NUR ---
ATTEMPTED TO CALL ROOFER ASSISTANT TO FOLLOW UP CT ANGIO TEST, DID NO SILICA FILTER OPERATOR.
--- NOTE | 2022-05-20 19:41 | NUR ---
ENDORSED PT TO NIGHT RN FOR CONTINUITY FOC ARE, PT IS STABLE AT THIS TIME.
--- NOTE | 2022-05-20 19:42 | NUR ---
RECEIVED REPORT FROM PAM MENDOZA FOR CONTINUITY OF CARE. PT AWAKE, WITH FAMILY MEMBER AT BEDSIDE. ON RN FAMILY PRACTICE. RESPIRATIONS EVEN AND UNLABORED ON 5LO2 VIA SIMLE MASK. CHERY CATHETER DRAINING TO GRAVITY. RIJ TRIPLE LUMEN, PATENT AND INTACT. INITIAL ASSESSMENT DONE. POC DISCUSSED WITH PT AND PAM HEATH. WITH 1:1 SITTER. SAFETY AND SZ PRECAUTIONS IN PLACE.
--- NOTE | 2022-05-20 19:43 | NUR ---
Patient's Plan of Care was discussed and reviewed with KATHY: TONA
--- NOTE | 2022-05-20 19:45 | NUR ---
PT WAS TRANSPORTED VIA WHEELCHAIR FOR CT ANGIO CHEST BY PAM HEATH, [employer] CRM DEVELOPER AND I. PT WAS STABLE.
--- NOTE | 2022-05-20 19:53 | NUR ---
PT BACK TO HER ROOM. PT WAS STABLE.
[2022-05-20 20:00] VITALS: BP 110/71
[2022-05-20] MEDS: HYDROcodone/APAP 5/325 MG 1 TAB TAB PO PRN (20:49)
--- NOTE | 2022-05-20 22:24 | NUR ---
MESSAGED DR SANDHU EARLIER THAT THE PATIENT 5150 HOLD HASN'T BEEN RENEWED FOR 6 DAYS. ASKED MD IF I CAN GET AN ORDER FOR TELE PSYCH TO RE-ASSESS THE PATIENT IF SHE STILL NEED TO BE ON 5150 HOLD. CALLED TELE PSYCH NUMBER [phone] AND SPOKE WITH MARIAN WHO STATED SHE WILL HAVE SOMEONE TO CALL US. KATHY CARBONE MADE AWARE.
--- NOTE | 2022-05-20 22:50 | NUR ---
CN CALLED FOR TELEPSYCH EVAL FOR 5150 HOLD EXTENSION. RECEIVED CALL FROM DR GILMORE. PER , EVALUATION CAN BE DONE TOMORROW MORNING UNLESS IT IS AN EMERGENCY. WILL ENDORSE TO DAY SHIFT NURSE. CN AWARE.
[2022-05-21] VITALS: BP 97/59
[2022-05-21 04:00] VITALS: BP 100/60
[2022-05-21] MEDS: PIPERACILLIN/TAZOBACTAM 3.375 GM in DEXTROSE 5% 50 ML IV SCH ×3 (04:59→20:38)
[2022-05-21 06:09] LABS: ANION GAP 12.3 (8-16); CARBON DIOXIDE 28.2 mmol/L (21-32); CREATININE 0.7 mg/dL (0.6-1.3); POTASSIUM 3.5 mmol/L (3.5-5.1)
[2022-05-21 06:11] LABS: BASOPHILS # (AUTO) 0.1 K/uL (0.00-0.22); BASOPHILS % (AUTO) 0.6 % (0.0-2.0); EOSINOPHILS # (AUTO) 0.6 K/uL (0-0.4); EOSINOPHILS % (AUTO) 4.8 % (0.0-4.0); HEMATOCRIT 34.1 % (36-48); HEMOGLOBIN 11.1 g/dL (12.0-16.0); LYMPHOCYTES # (AUTO) 2.7 K/uL (2.5-16.5); MEAN CORPUSCULAR HEMOGLOBIN 30 pg (27-31); MEAN CORPUSCULAR HGB CONC 33 g/dL (33-37); MEAN CORPUSCULAR VOLUME 90.6 fL (80-94); MONOCYTES % (AUTO) 8.5 % (1.7-9.3); NEUTROPHILS # (AUTO) 7.8 K/uL (1.8-7.7); NEUTROPHILS % (AUTO) 64.1 % (42.2-75.2); PLATELET COUNT (AUTO) 333 K/uL (140-450); RED BLOOD CELL COUNT(AUTO) 3.77 MIL/uL (4.20-5.40); RED CELL DISTRIBUTION WIDTH 13.7 % (11.6-13.7); WHITE BLOOD COUNT (AUTO) 12.2 K/uL (4.8-10.8)
--- NOTE | 2022-05-21 06:28 | NUR ---
PT SLEEPING. NO DISTRESS NOTED. 1:1 SITTER MAINTAINED ALL THROUGHOUT SHIFT.
[2022-05-21 06:40] LABS: MAGNESIUM 1.7 mg/dL (1.8-2.4); PHOSPHORUS 4.3 mg/dL (2.5-4.9)
--- NOTE | 2022-05-21 07:16 | NUR ---
DR. GILMORE (TELE PSYCH MED ) CALLED REGARDING PT. PSYCH CONSULT SPOKE TO PT. VIA ZOOM.
--- NOTE | 2022-05-21 07:19 | NUR ---
GAVE BEDSIDE REPORT TO KATHY BEAVER FOR CONTINUITY OF CARE. ENDORSED COMMUNICATION WITH DR GILMORE LAST NIGHT, FOR TELE-PSYCHE THIS MORNING. PT IN STABLE CONDITION. 1:1 SITTER MAINTAINED.
--- NOTE | 2022-05-21 07:19 | NUR ---
ASSUMED CONTINUITY OF CARE. INITIAL ASSESSMENT DONE. CALM, QUIET, AND COOPERATIVE. NO SUICIDAL BEHAVIOR OBSERVED. KEEP COMFORTABLE ON BED. SUICIDAL PREVENTION AND FALL PRECAUTION APPLIED. WILL MONITOR CLOSELY 1:1.
--- NOTE | 2022-05-21 07:31 | NUR ---
WENT TO BATHROOM WITHOUT ASSISTANCE. TOLERATED WELL. HAD STEADY GAIT AND BALANCE.
[2022-05-21 08:00] VITALS: BP 95/59
--- NOTE | 2022-05-21 08:11 | NUR ---
PAGED DR. SANDHU REGARDING MAG 1.7 ASKED FOR MAG OX OR MAG RIDER ORDER. DR. SANDHU PAGED AND ORDERED MAG RIDER 1 GM IVPB X1 DOSE. INFORMED CHARGE NURSE GORGE FULLER.
[2022-05-21] MEDS ORDERED: COMMUNICATION ORDER MC PRN (08:15)
[2022-05-21] MEDS ORDERED: MAG SULF 2000 MG/WATER PREMIX 25 ML IV SCH (08:45)
--- NOTE | 2022-05-21 10:31 | NUR ---
DR ROSE CAME AND SPOKE TO PT. AT BEDSIDE.
--- NOTE | 2022-05-21 10:46 | NUR ---
PT. DAUGHTER -ALEKSANDR CAME AND STAY AT PT. BEDSIDE. PT. SLEEPING COMFORTABLY.
--- NOTE | 2022-05-21 11:27 | NUR ---
AMBULATES ON HALLWAY ACCOMPANIED BY PT. DAUGHTER SOHEILA. TOLERATED WELL. NO SOB, NOTED. STAYED WITH THE PT. DURING AMBULATION TO PREVENT INJURY.
[2022-05-21 12:00] VITALS: BP 111/75
--- NOTE | 2022-05-21 12:47 | NUR ---
PT. DAUGHTER -BARBARA CAME AND STAYED WITH PT. AT BEDSIDE. PT. AWAKE, AND INTERACTING APPROPRIATELY.
--- NOTE | 2022-05-21 12:47 | NUR ---
PT. DAUGHTER BARBARA CAME AND STAYED AT PT. BEDSIDE. PT. INTERACTING APPROPRIATELY. NO UNTOWARD BEHAVIOR OBSERVED.
[2022-05-21] MEDS ORDERED: ALBUTEROL 0.083% 2.5 MG/3 ML NEBU INH PRN (14:25)
--- NOTE | 2022-05-21 15:23 | NUR ---
DR. CARTWRIGHT CAME AND SEEN PT.. PT. DAUGHTER -BARBARA ON BEDSIDE.
--- NOTE | 2022-05-21 15:37 | NUR ---
PAGED DR. ROSE AND INFORMED OF PT. CT ANGIO CHEST RESULTS/IMPRESSION AND VERIFIED IF LOVENOX 80 MG SUB-Q Q12 WILL BE CONTINUE. DR. ORSE PAGED BACK AND ORDERED TO CHANGED LOVENOX 80 MG SUB-Q Q12 TO LOVENOX 40 MG SUB-Q DAILY. INFORMED CHARGE NURSE GORGE FULLER.
[2022-05-21 16:00] VITALS: BP 98/64
--- NOTE | 2022-05-21 16:00 | NUR ---
PT. MOTHER CAME AND STAYED AT BEDSIDE. PT. INTERACTING APPROPRIATELY.
--- NOTE | 2022-05-21 17:03 | NUR ---
PT. SISTER CAME AND SIT ON CHAIR BESIDE PT. BED. PT. CALM AND HAVE NORMAL CONVERSATION WITH HER SISTER.
--- NOTE | 2022-05-21 18:01 | NUR ---
PAGED DR. SANDHU REGARDING CHANGE OF PT. DIET TO REGULAR. DR. SANDHU PAGED BACK AND GOT AN ORDER.
--- NOTE | 2022-05-21 19:18 | NUR ---
BEDSIDE REPORT GIVEN TO TONA MONCADA. IN STABLE CONDITION. PT. MOTHER ON BEDSIDE.
--- NOTE | 2022-05-21 19:19 | NUR ---
RECEIVED REPORT FROM KATHY BEAVER FOR CONTINUITY OF CARE. PT AWAKE AND ALERT, WITH FAMILY MEMBER AT BEDSIDE. AMBULATORY. SATTING AT 99% ON 4L NC. NO DISTRESS NOTED. NO COMPLAINTS OF PAIN. ON BUSINESS ARCHITECT. 1:1 SITTER. POC DISCUSSED WITH PT AND PAM MIDDLETON. SAFETY PRECAUTIONS IN PLACE.
[2022-05-21 20:00] VITALS: BP 103/67
--- NOTE | 2022-05-21 20:00 | NUR ---
Patient's Plan of Care was discussed and reviewed with KATHY Cisneros.
--- NOTE | 2022-05-21 20:05 | NUR ---
RT AT BEDSIDE LOWERS O2 TO 2L VIA NC. PT TOLERATING WELL SATTING AT 94-95.
[2022-05-21] MEDS: HYDROcodone/APAP 5/325 MG 1 TAB TAB PO PRN (20:20)
[2022-05-21] MEDS ORDERED: LOVENOX 1MG/KG Q12H SUBQ SCH (21:00)
[2022-05-21] MEDS ORDERED: ENOXAPARIN 80 MG/0.8 ML SYR SUBQ SCH (21:00)
[2022-05-22] VITALS: BP 113/72
[2022-05-22 04:00] VITALS: BP 97/52
[2022-05-22] MEDS: PIPERACILLIN/TAZOBACTAM 3.375 GM in DEXTROSE 5% 50 ML IV SCH (04:50)
--- NOTE | 2022-05-22 06:14 | NUR ---
PT SLEEPING. NO ACUTE EVENTS OVERNIGHT. PT ON 2L NC, SATTING AT 95%. 1:1 SITTER MAINTAINED.
--- NOTE | 2022-05-22 07:05 | NUR ---
ASSUMED CONTINUITY OF CARE. PT. SLEEPING AT THIS TIME. NO RESPIRATORY DISTRESS NOTICED. KEEP ENVIRONMENT SAFE. CLOSELY MONITORED 1:1 FOR SUICIDAL PREVENTION.
[2022-05-22 08:00] VITALS: BP 95/57
--- NOTE | 2022-05-22 08:29 | NUR ---
MEDICAL STUDENT -MARIAA CAME AND SPOKE TO PT. AND PT. DAUGHTER ALEKSANDR.
[2022-05-22] MEDS ORDERED: ENOXAPARIN 40 MG/0.4 ML SYR SUBQ SCH (09:00)
--- NOTE | 2022-05-22 09:37 | NUR ---
AMBULATES ON [facility] HALLWAY 6X WITH PT. DAUGHTER -ALEKSANDR. PT. TOLERATED WELL. NO C/O PAIN. NO SOB, NOTED.
[2022-05-22] MEDS ORDERED: IBUPROFEN 600 MG TAB PO PRN (10:15)
--- NOTE | 2022-05-22 10:15 | NUR ---
SCREEN FOR LOW JEFFERY SCALE AT RISK, CONTINUE TO FOLLOW PRESSURE ULCER PREVENTION INTERVENTIONS. -TURN AND REPOSITION PATIENT Q 2H, ASSIST IF NEEDED -ASSESS AND MONITOR SKIN CONDITION DURING POSITION CHANGES -OFFLOAD BILATERAL HEELS BY PLACING PILLOWS UNDER CALVES AT ALL TIMES, UNLESS OTHERWISE CONTRAINDICATED -PRESSURE REDISTRIBUTION BY PLACING PILLOWS AND OFFLOADING SACRALCOCCYX -KEEP SKIN CLEAN AND DRY AT ALL TIMES.
--- NOTE | 2022-05-22 11:21 | NUR ---
CREW LEADER GLUING -ARNEL CAME AND SPOKE TO PT. DAUGHTER -ALEKSANDR.
[2022-05-22 12:00] VITALS: BP 107/65
--- NOTE | 2022-05-22 12:01 | NUR ---
PT. DAUGHTER -BARBARA CAME AND STAYED AT PT. BEDSIDE.
--- NOTE | 2022-05-22 13:19 | NUR ---
[place] POLICE OFFICERS (2) CAME IN AND SPOKE TO PT. AT BEDSIDE REGARDING PT. [id number] RE-EVAL.
--- NOTE | 2022-05-22 13:39 | NUR ---
DR. BARBER CAME AND ORDERED TO DOWNGRADE PT. STATUS TO MED-SURG FROM TELE. INFORMED CHARGE NURSE -NATHALIE FULLER.
--- NOTE | 2022-05-22 13:43 | NUR ---
F[employer] WORTH ASSISTANT EDITOR REPORTED TO CHARGE NURSE NATHALIE -PAM THAT PT. DIDN'T MET 5150 CRITERIA.
--- NOTE | 2022-05-22 13:51 | NUR ---
POWERHOUSE TENDER CAME FOR LAB BLOOD DRAW. TOLERATED WELL. CALM, QUIET, AND COOPERATIVE.
[2022-05-22 14:13] LABS: BASOPHILS # (AUTO) 0.1 K/uL (0.00-0.22); BASOPHILS % (AUTO) 0.5 % (0.0-2.0); EOSINOPHILS # (AUTO) 0.5 K/uL (0-0.4); EOSINOPHILS % (AUTO) 2.7 % (0.0-4.0); HEMATOCRIT 38.9 % (36-48); HEMOGLOBIN 12.6 g/dL (12.0-16.0); LYMPHOCYTES # (AUTO) 2.8 K/uL (2.5-16.5); LYMPHOCYTES % (AUTO) 16.3 % (20.5-51.1); MEAN CORPUSCULAR HEMOGLOBIN 29 pg (27-31); MEAN CORPUSCULAR HGB CONC 33 g/dL (33-37); MEAN CORPUSCULAR VOLUME 90.2 fL (80-94); MONOCYTES % (AUTO) 5.6 % (1.7-9.3); NEUTROPHILS # (AUTO) 12.8 K/uL (1.8-7.7); NEUTROPHILS % (AUTO) 74.9 % (42.2-75.2); PLATELET COUNT (AUTO) 409 K/uL (140-450); RED BLOOD CELL COUNT(AUTO) 4.31 MIL/uL (4.20-5.40); RED CELL DISTRIBUTION WIDTH 13.6 % (11.6-13.7)
[2022-05-22 14:34] LABS: ANION GAP 11.7 (8-16); CARBON DIOXIDE 30.4 mmol/L (21-32); CREATININE 0.9 mg/dL (0.6-1.3); POTASSIUM 4.1 mmol/L (3.5-5.1)
--- NOTE | 2022-05-22 14:40 | NUR ---
AMBULATES ON [facility] HALLWAY 5X. TOLERATED WELL. NO SOB, NOTED. NO C/O DIZZINESS. CLOSELY MONITORED PT. TO PREVENT INJURY.
--- NOTE | 2022-05-22 14:59 | NUR ---
05/22/22 RD FOLLOW UP COMPLETED PLEASE REFER TO NUTRITION ASSESSMENT UNDER CARE ACTIVITY FOR ESTIMATED NUTRITIONAL NEEDS. 1. RECOMMEND MECHANICAL SOFT DIET, TOLERATED. 2. CONTINUE ENSURE BID -ENSURE BID WILL PROVIDE 700 KCALS, 40 G PROTEIN 4. MONITOR GI, PO INTAKE, LAB VALUES. 5. RD TO FOLLOW-UP 3-5 DAYS, MODERATE RISK REVIEWED BY CHRISTEL TUTTLE RD
[2022-05-22 16:00] VITALS: BP 115/69
[2022-05-22] MEDS ORDERED: LEVO750T75 PO (17:33)
--- NOTE | 2022-05-22 17:40 | NUR ---
CALLED PT. ANGI -ABDOULAYEROELCHALINO AT AND INFORMED OF D/C ORDER.
--- NOTE | 2022-05-22 17:59 | NUR ---
PAGED DR. LEWIS AND ASK ORDER FOR D/C RIGHT IJ CENTRAL LINE. GOT AN ORDER PUT ON [employer]. INFORMED CHARGE NURSE NATHALIE FULLER.
--- NOTE | 2022-05-22 18:30 | NUR ---
D/C RIGHT IJ CENTRAL LINE PER MD ORDER WITH ASSISTANCE FROM CHARGE NURSE NATHALIE -PAM. TOLERATED WELL. WILL APPLY PRESSURE FOR 15 MINUTES.
--- NOTE | 2022-05-22 18:45 | NUR ---
NO BLEEDING FROM THE CENTRAL LINE SITE. NO C/O PAIN. NO SOB, NOTED. APPLIED PRESSURE DRESSING WITH 4X4 GAUZE AND TEGADERM.
--- NOTE | 2022-05-22 19:16 | NUR ---
PT. DAUGHTER -ABDOULAYEAICHA CAME TO HOUSING MANAGER PT.. EXPLAINED TO PT. AND PT. DAUGHTER ABOUT MD D/C ORDER, MD FOLLOW UP, DIAGNOSIS, D/C MEDICATION PRESCRIPTION, D/C INSTRUCTIONS AND TEACHING. PT. AND PT. DAUGHTER VERBALIZED UNDERSTANDING.
--- NOTE | 2022-05-22 19:20 | NUR ---
D/C HOME VIA WHEELCHAIR. IN STABLE CONDITION. INFORMED CHARGE NURSE MICHELLE
[2022-05-23] MEDS ORDERED: levoFLOXacin 750 MG TAB PO SCH (09:00)
--- NOTE | 2022-05-23 14:00 | NUR ---
DC PLANNING FIELDED CALL FROM PTS FAMILY MEMBER WHO REPORTED CONCERNS FOR PTS YOUNGEST DAUGHTER WHO CURRENTLY RESIDES WITH PT. ACTIVELY LISTENED TO PTS CONCERNS. SW OUTREACHED TO CPS, [phone] TO MAKE REPORT. SPOKE WITH ABRAM ROB II WHO TOOK REPORT. [facility] [id number] FORM FAXED TO [phone] CASE NAME; SARA ARMSTRONG
== END 2022-05-22 19:20 | disposition home or self-care (01) | DRG 817 ==
LOC: MED 03:21 → MMU 06:03 → MIC 17:43 → MTU 05-18 15:58
PROVIDERS: ADMIT Family Medicine; ATTEND Family Medicine
PROC: 5A1945Z Respiratory Ventilation, 24-96 Consecutive Hours (ICD-10-PCS; principal; 2022-05-14)
PROC: 0BH17EZ Insertion of Endotracheal Airway into Trachea, Via Natural or Artificial Opening (ICD-10-PCS; 2022-05-14)
PROC: 4A10X4Z Monitoring of Central Nervous Electrical Activity, External Approach (ICD-10-PCS; 2022-05-15)
PROC: 5A0935A Assistance with Respiratory Ventilation, Less than 24 Consecutive Hours, High Flow/Velocity Cannula (ICD-10-PCS; 2022-05-16)
PROC: 02HV33Z Insertion of Infusion Device into Superior Vena Cava, Percutaneous Approach (ICD-10-PCS; 2022-05-17)
DX: T43.292A Poisoning by other antidepressants, intentional self-harm, initial encounter (principal); J96.01 Acute respiratory failure with hypoxia; J69.0 Pneumonitis due to inhalation of food and vomit; G92.8 Other toxic encephalopathy; E87.0 Hyperosmolality and hypernatremia; F33.2 Major depressive disorder, recurrent severe without psychotic features; E87.6 Hypokalemia; R65.10 Systemic inflammatory response syndrome (SIRS) of non-infectious origin without acute organ dysfunction; Z20.822 Contact with and (suspected) exposure to COVID-19; F10.129 Alcohol abuse with intoxication, unspecified; X58.XXXA Exposure to other specified factors, initial encounter
CPT/HCPCS: 31500; 36415; 36556; 36600; 70450; 71045; 71275; 80048; 80053; 80076; 80305; 81001; 82803; 83735; 84100; 85025; 87040; 87070; 87081; 87086; 87186; 87205; 92526; 93005; 94002; 94003; 95816; 96374; 96375; 96376; 99291; A9153; G0480; G0482; J0696; J1165; J1644; J1650; J2060; J2543; J2704; J3010; J3411; J3475; J3480; J3490; J7030; J7060; Q0092; Q9967